=== PATIENT | male | born 1960 | race Caucasian/White ===

== ENCOUNTER → 2023-05-28 | Outpatient (CLI) | payer OTHER ==
[2023-05-28 13:17] LABS: BASO # 0.1 10^3/uL (0.0-0.2); BASO % 1.1 % (0.0-1.0); EOS # 0.3 10^3/uL (0.0-0.5); EOS % 3.2 % (0.0-3.0); HEMATOCRIT 47.3 % (42.0-52.0); HEMOGLOBIN 16.4 g/dl (13.5-17.5); LYMPH # 2.2 10^3/uL (1.5-5.0); LYMPH % 26.2 % (24.0-44.0); MEAN CORPUSCULAR HEMOGLOBIN 32.5 pg (27.0-33.0); MEAN CORPUSCULAR HGB CONC 34.7 g/dl (32.0-36.5); MEAN CORPUSCULAR VOLUME 93.7 fl (80.0-96.0); MONO # 0.9 10^3/uL (0.0-0.8); NEUTROPHILS # 4.8 10^3/uL (1.5-8.5); NEUTROPHILS % 57.3 % (36.0-66.0); PLATELET COUNT, AUTOMATED 211 10^3/uL (150-450); RED BLOOD COUNT 5.05 10^6/uL (4.30-6.10); WHITE BLOOD COUNT 8.4 10^3/uL (4.0-10.0)
[2023-05-28 13:36] LABS: URIC ACID 6.7 MG/DL (3.7-9.2)
[2023-05-28 13:38] LABS: C REACTIVE PROTEIN QUANTITATIV < 0.40 MG/DL (<1.0)
[2023-05-28 13:42] LABS: ERYTHROCYTE SEDIMENTATION RATE 17 mm/hr (0-20)
== END ==
LOC: M PLALAB 11:25
PROVIDERS: ATTEND Orthopaedic Surgery
DX: M17.12 Unilateral primary osteoarthritis, left knee (principal)

== ENCOUNTER 2023-07-06 19:55 | Emergency (ER) | payer OTHER ==
[~2023-07-06] VITALS: Ht 182.9 cm; Wt 104.4 kg
[2023-07-06] MEDS ORDERED: ROSU40TA4 (20:15)
[2023-07-06] MEDS ORDERED: LISI20TA33 (20:15)
[2023-07-06 21:41] LABS: BASO # 0.1 10^3/uL (0.0-0.2); BASO % 0.9 % (0.0-1.0); EOS # 0.3 10^3/uL (0.0-0.5); EOS % 3.7 % (0.0-3.0); HEMATOCRIT 47.5 % (42.0-52.0); HEMOGLOBIN 16.2 g/dl (13.5-17.5); LYMPH # 2.9 10^3/uL (1.5-5.0); LYMPH % 31.8 % (24.0-44.0); MEAN CORPUSCULAR HEMOGLOBIN 31.4 pg (27.0-33.0); MEAN CORPUSCULAR HGB CONC 34.1 g/dl (32.0-36.5); MEAN CORPUSCULAR VOLUME 92.1 fl (80.0-96.0); MONO % 11.5 % (2.0-8.0); NEUTROPHILS # 4.6 10^3/uL (1.5-8.5); NEUTROPHILS % 51.5 % (36.0-66.0); PLATELET COUNT, AUTOMATED 230 10^3/uL (150-450); RED BLOOD COUNT 5.16 10^6/uL (4.30-6.10)
[2023-07-06 21:54] LABS: CK-MB VALUE MASS 1.1 NG/ML (<3.6)
[2023-07-06 21:56] LABS: BLOOD UREA NITROGEN 21 MG/DL (9-23); CARBON DIOXIDE LEVEL 26 MMOL/L (20-31); CHLORIDE LEVEL 105 MMOL/L (98-107); CREATININE FOR GFR 0.91 MG/DL (0.70-1.30); GLOMERULAR FILTRATION RATE > 60.0 (>49); GLUCOSE, FASTING 93 MG/DL (74-106); POTASSIUM SERUM 4.1 MMOL/L (3.5-5.1); SODIUM LEVEL 140 MMOL/L (136-145)
[2023-07-06 21:58] LABS: FREE T4 1.28 NG/DL (0.89-1.76)
[2023-07-06 21:59] LABS: THYROID STIMULATING HORMONE 2.149 uIU/ML (0.55-4.78)
[2023-07-06 22:01] LABS: CPK CREATINE PHOSPHOKINASE 130 U/L (46-171); MB/CK RELATIVE INDEX 0.84 (< OR =4); RSV AMPLIFICATION NEGATIVE (NEGATIVE)
[2023-07-06 23:35] LABS: CK-MB VALUE MASS < 1.0 NG/ML (<3.6)
[2023-07-06 23:36] LABS: CPK CREATINE PHOSPHOKINASE 119 U/L (46-171); MB/CK RELATIVE INDEX 0.84 (< OR =4)
[2023-07-06] MEDS ORDERED: HOLTER MONITOR XX (23:54)
[2023-07-07] VITALS: BP 168/109; TEMP 98.9; O2SAT 96
== END 2023-07-07 00:12 | disposition home or self-care (01) ==
LOC: M ED 19:55
DX: I44.2 Atrioventricular block, complete (principal); I10 Essential (primary) hypertension; E78.5 Hyperlipidemia, unspecified; Z79.899 Other long term (current) drug therapy

== ENCOUNTER → 2023-07-09 | Outpatient (CLI) | payer OTHER ==
[~2023-07-09] MED LIST: HOLTER MONITOR XX; LISI20TA33; ROSU40TA4
== END ==
LOC: M EKG 08:46
PROVIDERS: ATTEND Emergency Medicine
DX: R00.2 Palpitations (principal); I44.2 Atrioventricular block, complete

== ENCOUNTER 2023-07-20 09:49 | Day surgery (SDC) | payer OTHER ==
[~2023-07-20] VITALS: Ht 182.9 cm; Wt 104.4 kg
[~2023-07-20 09:49] MED LIST changes: -LISI20TA33; +LISI20TA33 PO; -ROSU40TA4; +ROSU40TA4 PO
[2023-07-20] MEDS ORDERED: LR 1,000 ML IV SCH (10:50)
[2023-07-20] MEDS ORDERED: ceFAZolin SOD 2 GM in IV 1 EA IV ONE (11:25)
[2023-07-20] MEDS ORDERED: zinc (11:33)
[2023-07-20] MEDS ORDERED: VITA100C15 PO (11:33)
[2023-07-20] MEDS ORDERED: B-12100010 PO (11:33)
[2023-07-20] MEDS ORDERED: D3400CAP PO (11:33)
[2023-07-20] MEDS ORDERED: THERTAB52 PO (11:33)
[2023-07-20] MEDS ORDERED: B-122500 PO (11:49)
[2023-07-20] MEDS ORDERED: D-50TAB PO (11:49)
[2023-07-20] MEDS ORDERED: RA N1TAB PO (11:49)
[2023-07-20] MEDS ORDERED: RA T500C2 PO (11:49)
[2023-07-20] MEDS ORDERED: VITA180C2 PO (11:49)
[2023-07-20] MEDS ORDERED: CENT1TAB PO (11:49)
[2023-07-20] MEDS ORDERED: ZINC50TA14 PO (11:49)
[2023-07-20] MEDS ORDERED: HOME MED LIST COMPLETE! XX SCH (11:50)
[2023-07-20] MEDS ORDERED: LIDOCAINE 1% SDV 30ML VIAL As Ordered ONE (12:27)
[2023-07-20] MEDS ORDERED: ISOVUE-300 61% 100ML VIAL As Ordered ONE (12:28)
[2023-07-20] MEDS ORDERED: AMIODARONE 150MG/3ML VIAL As Ordered ONE (12:28)
[2023-07-20] MEDS ORDERED: fentaNYL 100 MCG/2 ML INJECTION As Ordered ONE (12:32)
[2023-07-20] MEDS ORDERED: propofoL 200 MG/20 ML VIAL As Ordered ONE ×3 (12:32→13:36)
[2023-07-20] MEDS ORDERED: LIDOCAINE 2% 100MG/5ML SDV (FOR ANES.) As Ordered ONE (12:32)
[2023-07-20] MEDS ORDERED: MIDAZOLAM INJ 2MG/2ML VIAL As Ordered ONE (12:32)
[2023-07-20] MEDS ORDERED: HYDROMORPHONE HCL 0.5 MG/ 0.5 ML SYRINGE IV PRN (13:55)
[2023-07-20] MEDS ORDERED: ONDANSETRON 4MG 2ML VIAL IV PRN (13:55)
[2023-07-20] MEDS ORDERED: fentaNYL 100 MCG/2 ML INJECTION IV PRN (13:55)
[2023-07-20] MEDS ORDERED: oxyCODONE 5MG TAB PO PRN (13:55)
[2023-07-20 15:17] VITALS: BP 145/79; TEMP 97.5; O2SAT 98
== END 2023-07-20 15:21 | disposition home or self-care (01) ==
LOC: M SDC 09:49
PROVIDERS: ATTEND Internal Medicine Cardiovascular Disease
DX: I44.2 Atrioventricular block, complete (principal); I77.810 Thoracic aortic ectasia; I10 Essential (primary) hypertension; E66.9 Obesity, unspecified; E78.5 Hyperlipidemia, unspecified; Z79.899 Other long term (current) drug therapy
CPT/HCPCS: 33208; 71045; 76000; 87635; 93005; C1785; C1898; J0282; J0690; J2250; J3010; Q9967

== ENCOUNTER → 2023-12-09 | Outpatient (REF) | payer MEDICARE, OTHER ==
[~2023-12-09] MED LIST changes: +B-12100010 PO; +B-122500 PO; +CENT1TAB PO; +CHOL10CA2 PO; +D-50TAB PO; +RA N1TAB PO; +RA T500C2 PO; +THERTAB52 PO; +VITA100C15 PO; +VITA180C2 PO; +ZINC50TA14 PO; +zinc
[2023-12-09 19:01] LABS: ALBUMIN 3.7 G/DL (3.2-5.2); ALKALINE PHOSPHATASE 52 U/L (46-116); ALT/SGPT 42 U/L (7.0-40); AST/SGOT 37 U/L (<34); BILIRUBIN,TOTAL 0.6 MG/DL (0.3-1.2); BLOOD UREA NITROGEN 21 MG/DL (9-23); CALCIUM LEVEL 9.5 MG/DL (8.3-10.6); CARBON DIOXIDE LEVEL 26 MMOL/L (20-31); CHLORIDE LEVEL 106 MMOL/L (98-107); CHOLESTEROL LEVEL 171 MG/DL (<200); CHOLESTEROL RISK RATIO 3.69 (<5); CREATININE FOR GFR 0.75 MG/DL (0.70-1.30); GLOMERULAR FILTRATION RATE > 60.0 (>49); GLUCOSE, FASTING 106 MG/DL (74-106); HDL CHOLESTEROL 46.3 MG/DL (>40); LDL CHOLESTEROL 76.1 MG/DL (<100); NON-HDL-C 124.7 MG/DL; POTASSIUM SERUM 4.7 MMOL/L (3.5-5.1); SODIUM LEVEL 139 MMOL/L (136-145); TOTAL PROTEIN 6.5 G/DL (5.7-8.2); TRIGLYCERIDES LEVEL 243 MG/DL (<150)
[2023-12-09 19:03] LABS: THYROID STIMULATING HORMONE 0.949 uIU/ML (0.55-4.78)
[2023-12-09 19:05] LABS: FREE T4 1.05 NG/DL (0.89-1.76)
[2023-12-09 19:26] LABS: HEMOGLOBIN A1c 4.9 % (4.0-6.0)
== END ==
LOC: M SFHCCAPE 11:23
PROVIDERS: ATTEND Nurse Practitioner Family
DX: E78.5 Hyperlipidemia, unspecified (principal); Z95.0 Presence of cardiac pacemaker; I10 Essential (primary) hypertension; M06.9 Rheumatoid arthritis, unspecified; R01.1 Cardiac murmur, unspecified; Z79.899 Other long term (current) drug therapy

== ENCOUNTER → 2024-08-02 | Outpatient (REF) | payer MEDICARE, OTHER ==
[~2024-08-02] MED LIST changes: -ROSU40TA4 PO; +ROSU40TA81 PO
[2024-08-02 13:21] LABS: BLOOD UREA NITROGEN 23 MG/DL (9-23); CALCIUM LEVEL 9.4 MG/DL (8.3-10.6); CARBON DIOXIDE LEVEL 26 MMOL/L (20-31); CHLORIDE LEVEL 109 MMOL/L (98-107); GLOMERULAR FILTRATION RATE > 60.0 (>49); GLUCOSE, FASTING 110 MG/DL (74-106); POTASSIUM SERUM 4.6 MMOL/L (3.5-5.1); SODIUM LEVEL 143 MMOL/L (136-145)
== END ==
LOC: M LAB REF 11:38 → M LABDRAWC 11:38
PROVIDERS: ATTEND Physician Assistant
DX: I11.9 Hypertensive heart disease without heart failure (principal)

== ENCOUNTER → 2024-12-12 | Outpatient (REF) | payer MEDICARE, OTHER ==
[2024-12-12 18:50] LABS: HEMATOCRIT 44.6 % (42.0-52.0); HEMOGLOBIN 15.3 g/dl (13.5-17.5); MEAN CORPUSCULAR HEMOGLOBIN 32.4 pg (27.0-33.0); MEAN CORPUSCULAR HGB CONC 34.3 g/dl (32.0-36.5); MEAN CORPUSCULAR VOLUME 94.5 fl (80.0-96.0); PLATELET COUNT, AUTOMATED 207 10^3/uL (150-450); RED BLOOD COUNT 4.72 10^6/uL (4.30-6.10); WHITE BLOOD COUNT 7.6 10^3/uL (4.0-10.0)
[2024-12-12 19:09] LABS: HEMOGLOBIN A1c 5.1 % (4.0-6.0)
[2024-12-12 19:20] LABS: FREE T4 1.12 NG/DL (0.89-1.76); THYROID STIMULATING HORMONE 0.787 uIU/ML (0.55-4.78)
== END ==
LOC: M SFHCCLAY 11:26
PROVIDERS: ATTEND Nurse Practitioner Family
DX: I10 Essential (primary) hypertension (principal); M06.9 Rheumatoid arthritis, unspecified; E78.5 Hyperlipidemia, unspecified; H90.5 Unspecified sensorineural hearing loss; Z95.0 Presence of cardiac pacemaker; R01.1 Cardiac murmur, unspecified

== ENCOUNTER → 2025-03-21 | Outpatient (CLI) | payer MEDICARE, OTHER ==
[~2025-03-21] MED LIST changes: -RA T500C2 PO; +TURM500C10 PO
[2025-03-21 18:06] LABS: PLATELET COUNT, AUTOMATED 219 10^3/uL (150-450)
== END ==
LOC: M PLAIMG 10:09
PROVIDERS: ATTEND Physician Assistant
DX: I48.0 Paroxysmal atrial fibrillation (principal); I35.2 Nonrheumatic aortic (valve) stenosis with insufficiency

== ENCOUNTER → 2025-05-07 | Outpatient (REF) | payer MEDICARE, OTHER ==
[2025-05-07 13:55] LABS: ALT/SGPT 35.0 U/L (7.0-40); AST/SGOT 29.0 U/L (<34); CALCIUM LEVEL 9.3 MG/DL (8.3-10.6); CARBON DIOXIDE LEVEL 25.0 MMOL/L (20-31); CHLORIDE LEVEL 106.0 MMOL/L (98-107); CHOLESTEROL LEVEL 187.0 MG/DL (<200); CHOLESTEROL RISK RATIO 3.73 (<5); CREATININE FOR GFR 1.18 MG/DL (0.70-1.30); GLOMERULAR FILTRATION RATE 68.1 (>49); LDL CHOLESTEROL 95.7 MG/DL (<100); NON-HDL-C 136.9 MG/DL; POTASSIUM SERUM 4.7 MMOL/L (3.5-5.1); SODIUM LEVEL 139.0 MMOL/L (136-145); TRIGLYCERIDES LEVEL 206.0 MG/DL (<150)
== END ==
LOC: M LABDRAWC 12:24
PROVIDERS: ATTEND Internal Medicine Cardiovascular Disease
DX: I48.0 Paroxysmal atrial fibrillation (principal); E11.9 Type 2 diabetes mellitus without complications; E78.00 Pure hypercholesterolemia, unspecified